=== PATIENT | female | born 2000 | race Two or more races ===

== ENCOUNTER 2021-06-30 12:10 | Emergency (ER) | payer MEDICAID ==
[~2021-06-30] VITALS: Ht 157.5 cm; Wt 57.3 kg
[2021-06-30] MEDS ORDERED: BENZONATATE 100 MG CAPSULE PO ONE (12:45)
[2021-06-30] MEDS ORDERED: ALBUTEROL SULFATE 2.5 MG/0.5 ML NEB SOLUTION NEB ONE (12:45)
[2021-06-30] MEDS ORDERED: IPRATROPIUM BROMIDE 0.5 MG/2.5 ML NEB SOLUTION NEB ONE (12:45)
[2021-06-30 13:30] VITALS: BP 110/71
[2021-06-30] MEDS ORDERED: ALBU8HFA IH (13:46)
[2021-06-30] MEDS ORDERED: BENZ-70 PO (13:46)
[2021-07-17] MEDS ORDERED: PENI500T2 PO (04:45)
== END 2021-06-30 13:58 | disposition home or self-care (01) ==
LOC: EMS 12:10
DX: J98.01 Acute bronchospasm (principal); F17.210 Nicotine dependence, cigarettes, uncomplicated; F15.11 Other stimulant abuse, in remission; Z87.09 Personal history of other diseases of the respiratory system
CPT/HCPCS: 71045; 94640; 99285; J7613

== ENCOUNTER 2021-07-05 11:35 | Inpatient (IN) | payer MEDICAID ==
[~2021-07-05] VITALS: Ht 160 cm; Wt 58.0 kg
[~2021-07-05 11:35] MED LIST: ALBU8HFA IH; BENZ-70 PO
[2021-07-05] MEDS ORDERED: SODIUM CHLORIDE 0.9% 1,000 ML IV ONE ×2 (11:45→13:00)
[2021-07-05] MEDS: ACETAMINOPHEN 500 MG TABLET PO ONE ×2 (11:46→12:50)
[2021-07-05 12:12] LABS: BASOPHILS % (AUTO) 0.9 % (0.0-2.0); EOSINOPHILS % (AUTO) 1.9 % (1.0-6.0); HEMATOCRIT 41.8 % (36-46); HEMOGLOBIN 13.8 g/dL (12.0-16.0); LYMPHOCYTES # (AUTO) 1.1 K/uL (1.0-4.8); LYMPHOCYTES % (AUTO) 5.9 % (22.0-44.0); MEAN CORPUSCULAR HEMOGLOBIN 26.5 pg (26.0-34.0); MEAN CORPUSCULAR HGB CONC 33.1 G/dL (31.0-37.0); MEAN CORPUSCULAR VOLUME 80 fL (80-100); MONOCYTES # (AUTO) 1.1 K/uL (0.1-1.0); NEUTROPHILS # (AUTO) 15.4 K/uL (1.8-7.7); PLATELET COUNT (AUTO) 501 K/uL (150-450); RED BLOOD CELL COUNT(AUTO) 5.22 MIL/uL (4.00-5.20); RED CELL DISTRIBUTION WIDTH 14.3 % (11.5-14.5)
[2021-07-05 12:13] LABS: NEUTROPHILS % (AUTO) 85.3 % (40.0-70.0)
[2021-07-05] MEDS ORDERED: LEVOFLOXACIN 500 MG/D5% WATER 100 ML IV ONE (12:15)
[2021-07-05] MEDS ORDERED: PIPERACILLIN/TAZO 3.375 GM/D5W 50 ML IV ONE (12:15)
[2021-07-05 12:16] LABS: COVID AG,FIA SOURCE NASOPHARYNGEAL
[2021-07-05 12:20] LABS: ANION GAP 7 mmol/L (8-16); CALCIUM, TOTAL 8.9 mg/dL (8.8-10.5); CARBON DIOXIDE 29 mmol/L (22-29); CHLORIDE 105 mmol/L (98-107); CREATININE 0.79 mg/dL (0.60-1.30); GLOMERULAR FILTR. RATE CALC > 60 mL/min (>60); GLUCOSE,RANDOM 100 mg/dL (70-110); POTASSIUM 4.1 mmol/L (3.5-5.1); SODIUM SERUM 141 mmol/L (136-145); UREA NITROGEN, BLOOD 17 mg/dL (7-18)
[2021-07-05 12:25] LABS: PROTHROMBIN TIME 10.3 SEC (9.4-11.6)
[2021-07-05 12:26] LABS: ALANINE AMINOTRANSFERASE 35 U/L (12-78); ALBUMIN 3.5 g/dL (3.4-5.0); ALKALINE PHOSPHATASE 99 U/L (46-116); ASPARTATE AMINOTRANSFERASE 25 U/L (15-37); BILIRUBIN,TOTAL 0.3 mg/dL (0.1-1.0); CREATINE KINASE, TOTAL ONLY 36 U/L (26-192); TOTAL PROTEIN, SERUM 7.7 g/dL (6.4-8.2)
[2021-07-05 12:33] LABS: LACTIC ACID 1.4 mmol/L (0.4-2.0)
[2021-07-05 12:34] LABS: INFLUENZA TYPE A NEGATIVE FOR TYPE A (NEGATIVE); INFLUENZA TYPE B NEGATIVE FOR TYPE B (NEGATIVE)
[2021-07-05] MEDS ORDERED: ONDANSETRON HCL 4 MG/2 ML VIAL IVP PRN (13:15)
[2021-07-05 13:30] LABS: HCG,QUANTITATIVE < 1 mIU/mL (0-6)
[2021-07-05] MEDS ORDERED: VANCOMYCIN HCL 1 GM in DEXTROSE 5%-WATER 250 ML IV ONE (14:00)
[2021-07-05] MEDS ORDERED: VANCOMYCIN HCL 1 GM/D5% WATER 200 ML IV ONE (14:00)
[2021-07-05 16:00] VITALS: BP 108/71
[2021-07-05] MEDS: HEPARIN SODIUM,PORCINE 5,000 UNITS/ML VIAL SQ SCH (16:00)
[2021-07-05] MEDS ORDERED: 0.9% SODIUM CHLORIDE 5 ML NEB SOLUTION NEB ONE (18:53)
[2021-07-05] MEDS: PIPERACILLIN/TAZO 3.375 GM/D5W 50 ML IV SCH (18:57)
[2021-07-05 19:44] VITALS: BP 104/59
[2021-07-05] MEDS: LORazepam 2 MG/ML VIAL IVP PRN (19:45)
[2021-07-05] MEDS: DOCUSATE SODIUM 100 MG CAPSULE PO SCH (20:34)
[2021-07-05] MEDS: ACETAMINOPHEN 325 MG TABLET PO PRN (21:30)
[2021-07-05] MEDS: BENZONATATE 100 MG CAPSULE PO PRN (21:30)
[2021-07-05 23:34] VITALS: BP 98/58
[2021-07-06] VITALS (8 sets, daily range): BP systolic 95–111; BP diastolic 58–73
[2021-07-06] MEDS: VANCOMYCIN HCL 750 MG in DEXTROSE 5%-WATER 250 ML IV SCH ×4 (00:13→23:44)
[2021-07-06] MEDS ORDERED: SODIUM CHLORIDE 0.9% 250 ML IV ONE (00:20)
[2021-07-06] MEDS: PIPERACILLIN/TAZO 3.375 GM/D5W 50 ML IV SCH ×4 (00:22→19:53)
[2021-07-06] MEDS ORDERED: GuaiFENesin/CODEINE [SUGAR FREE] 200-20MG/10 ML SYRUP UDCUP PO PRN (01:45)
[2021-07-06] MEDS: LORazepam 2 MG/ML VIAL IVP PRN ×4 (01:47→23:32)
[2021-07-06] MEDS: ALBUTEROL SULFATE 2.5 MG/0.5 ML NEB SOLUTION NEB PRN (01:53)
[2021-07-06 02:30] LABS: APPEARANCE,URINE CLEAR (CLEAR); BILIRUBIN,URINE NEGATIVE (NEGATIVE); GLUCOSE, URINE (UA) NEGATIVE (NEGATIVE); KETONES,URINE NEGATIVE (NEGATIVE); LEUKOCYTE ESTERASE ,URINE NEGATIVE (NEGATIVE); NITRATE,URINE NEGATIVE (NEGATIVE); OCCULT BLOOD,URINE NEGATIVE (NEGATIVE); PH,URINE 5.5 (5.0-8.0); PROTEIN,URINE NEGATIVE (NEGATIVE); SPECIFIC GRAVITIY, URINE 1.019 (1.003-1.030); UROBILINOGEN,URINE <=1.0 mg/dL (<=1.0)
[2021-07-06 06:30] LABS: BASOPHILS % (AUTO) 0.4 % (0.0-2.0); HEMOGLOBIN 12.6 g/dL (12.0-16.0); LYMPHOCYTES # (AUTO) 1.1 K/uL (1.0-4.8); LYMPHOCYTES % (AUTO) 7.8 % (22.0-44.0); MEAN CORPUSCULAR HEMOGLOBIN 26.1 pg (26.0-34.0); MEAN CORPUSCULAR HGB CONC 32.4 G/dL (31.0-37.0); MEAN CORPUSCULAR VOLUME 81 fL (80-100); MONOCYTES # (AUTO) 1.1 K/uL (0.1-1.0); MONOCYTES % (AUTO) 7.8 % (2.0-9.0); NEUTROPHILS # (AUTO) 11.9 K/uL (1.8-7.7); PLATELET COUNT (AUTO) 433 K/uL (150-450); RED BLOOD CELL COUNT(AUTO) 4.83 MIL/uL (4.00-5.20); RED CELL DISTRIBUTION WIDTH 14.5 % (11.5-14.5)
[2021-07-06 06:45] LABS: ANION GAP 7 mmol/L (8-16); CALCIUM, TOTAL 8.3 mg/dL (8.8-10.5); CARBON DIOXIDE 29 mmol/L (22-29); CHLORIDE 105 mmol/L (98-107); CREATININE 0.66 mg/dL (0.60-1.30); GLOMERULAR FILTR. RATE CALC > 60 mL/min (>60); GLUCOSE,RANDOM 88 mg/dL (70-110); POTASSIUM 3.7 mmol/L (3.5-5.1); SODIUM SERUM 141 mmol/L (136-145); UREA NITROGEN, BLOOD 9 mg/dL (7-18)
[2021-07-06] MEDS: BENZONATATE 100 MG CAPSULE PO PRN (07:56)
[2021-07-06] MEDS: FAMOTIDINE 20 MG TABLET PO SCH (07:56)
[2021-07-06] MEDS: HEPARIN SODIUM,PORCINE 5,000 UNITS/ML VIAL SQ SCH ×4 (08:00→23:44)
[2021-07-06] MEDS: DOCUSATE SODIUM 100 MG CAPSULE PO SCH ×2 (08:07→21:00)
[2021-07-06] MEDS ORDERED: SODIUM CHLORIDE 0.9% 100 ML ONE (09:56)
[2021-07-06] MEDS ORDERED: IOHEXOL 350 MG/ML 100 ML VIAL ONE (09:56)
[2021-07-06 12:42] LABS: AMPHET/METH SCREEN,URINE POSITIVE (NEGATIVE); BARBITURATE SCREEN, URINE NEGATIVE (NEGATIVE); BENZODIAZEPINES SCREEN,URINE NEGATIVE (NEGATIVE); CANNABINOID SCREEN,URINE NEGATIVE (NEGATIVE); COCAINE SCREEN,URINE NEGATIVE (NEGATIVE); METHADONE SCREEN, URINE NEGATIVE (NEGATIVE); OPIATE SCREEN,URINE POSITIVE (NEGATIVE); PHENCYCLIDINE SCREEN,URINE NEGATIVE (NEGATIVE)
[2021-07-06] MEDS: MethylPREDNISolone SOD SUCC 125 MG/2 ML VIAL IVP SCH ×3 (13:53→23:39)
[2021-07-06] MEDS: BUDESONIDE 0.5 MG/2 ML NEB SOLUTION NEB SCH (20:13)
[2021-07-07] MEDS: MELATONIN 3 MG TABLET PO PRN ×2 (01:46→21:53)
[2021-07-07] MEDS: PIPERACILLIN/TAZO 3.375 GM/D5W 50 ML IV SCH ×4 (02:54→20:48)
[2021-07-07 04:31] VITALS: BP 104/54
[2021-07-07] MEDS: MethylPREDNISolone SOD SUCC 125 MG/2 ML VIAL IVP SCH ×3 (05:41→19:26)
[2021-07-07] MEDS: HEPARIN SODIUM,PORCINE 5,000 UNITS/ML VIAL SQ SCH ×2 (08:00→16:00)
[2021-07-07] MEDS: BUDESONIDE 0.5 MG/2 ML NEB SOLUTION NEB SCH ×2 (08:13→21:00)
[2021-07-07] MEDS: ALBUTEROL SULFATE 2.5 MG/0.5 ML NEB SOLUTION NEB PRN (08:13)
[2021-07-07] MEDS: DOCUSATE SODIUM 100 MG CAPSULE PO SCH ×2 (10:06→20:52)
[2021-07-07] MEDS: FAMOTIDINE 20 MG TABLET PO SCH (10:06)
[2021-07-07 10:46] VITALS: BP 105/67
[2021-07-07] MEDS: VANCOMYCIN HCL 750 MG in DEXTROSE 5%-WATER 250 ML IV SCH ×3 (10:48→23:52)
[2021-07-07] MEDS: LORazepam 2 MG/ML VIAL IVP PRN ×2 (11:25→20:52)
[2021-07-07 11:42] LABS: ANION GAP 12 mmol/L (8-16); CALCIUM, TOTAL 8.4 mg/dL (8.8-10.5); CARBON DIOXIDE 25 mmol/L (22-29); CHLORIDE 101 mmol/L (98-107); CREATININE 0.83 mg/dL (0.60-1.30); GLOMERULAR FILTR. RATE CALC > 60 mL/min (>60); GLUCOSE,RANDOM 258 mg/dL (70-110); POTASSIUM 3.7 mmol/L (3.5-5.1); SODIUM SERUM 138 mmol/L (136-145); UREA NITROGEN, BLOOD 14 mg/dL (7-18)
[2021-07-07 11:54] LABS: VANCOMYCIN,RANDOM 13.1 mcg/mL (25.0-50.0)
[2021-07-07] MEDS: BENZONATATE 100 MG CAPSULE PO PRN (12:46)
[2021-07-07 19:46] VITALS: BP 118/61
[2021-07-07 23:32] VITALS: BP 112/58
[2021-07-08] MEDS: MethylPREDNISolone SOD SUCC 125 MG/2 ML VIAL IVP SCH ×2 (01:51→07:25)
[2021-07-08] MEDS: PIPERACILLIN/TAZO 3.375 GM/D5W 50 ML IV SCH ×2 (02:01→07:25)
[2021-07-08] MEDS ORDERED: SODIUM CHLORIDE 0.9% 250 ML IV ONE (02:11)
[2021-07-08] MEDS: ACETAMINOPHEN 325 MG TABLET PO PRN (02:49)
[2021-07-08 04:33] VITALS: BP 114/67
[2021-07-08 07:47] LABS: ANION GAP 6 mmol/L (8-16); CALCIUM, TOTAL 8.7 mg/dL (8.8-10.5); CARBON DIOXIDE 30 mmol/L (22-29); CHLORIDE 105 mmol/L (98-107); CREATININE 0.64 mg/dL (0.60-1.30); GLOMERULAR FILTR. RATE CALC > 60 mL/min (>60); GLUCOSE,RANDOM 137 mg/dL (70-110); POTASSIUM 3.6 mmol/L (3.5-5.1); SODIUM SERUM 141 mmol/L (136-145); UREA NITROGEN, BLOOD 21 mg/dL (7-18)
[2021-07-08 07:56] VITALS: BP 116/69
[2021-07-08] MEDS: HEPARIN SODIUM,PORCINE 5,000 UNITS/ML VIAL SQ SCH ×2 (08:00)
[2021-07-08] MEDS: BUDESONIDE 0.5 MG/2 ML NEB SOLUTION NEB SCH (08:00)
[2021-07-08] MEDS: DOCUSATE SODIUM 100 MG CAPSULE PO SCH (08:49)
[2021-07-08] MEDS: FAMOTIDINE 20 MG TABLET PO SCH (08:49)
[2021-07-08] MEDS: LORazepam 2 MG/ML VIAL IVP PRN (08:53)
[2021-07-08] MEDS: VANCOMYCIN HCL 750 MG in DEXTROSE 5%-WATER 250 ML IV SCH (08:54)
[2021-07-09] MEDS ORDERED: DOXY-354 PO (15:01)
[2021-07-17] MEDS ORDERED: PENI500T2 PO (04:45)
== END 2021-07-08 12:30 | disposition left against medical advice (07) | DRG 139 ==
LOC: EMS 11:37 → 5S 13:52
PROVIDERS: ADMIT Internal Medicine; ATTEND Internal Medicine
PROC: 5A09357 Assistance with Respiratory Ventilation, Less than 24 Consecutive Hours, Continuous Positive Airway Pressure (ICD-10-PCS; principal; 2021-07-05)
DX: J18.1 Lobar pneumonia, unspecified organism (principal); J96.01 Acute respiratory failure with hypoxia; R65.10 Systemic inflammatory response syndrome (SIRS) of non-infectious origin without acute organ dysfunction; Z20.822 Contact with and (suspected) exposure to COVID-19; Z53.29 Procedure and treatment not carried out because of patient's decision for other reasons; F15.10 Other stimulant abuse, uncomplicated; F17.210 Nicotine dependence, cigarettes, uncomplicated; Z91.19 Patient's noncompliance with other medical treatment and regimen; U07.0 Vaping-related disorder
CPT/HCPCS: 71045; 71260; 80048; 80053; 80202; 80307; 81003; 82550; 83605; 84484; 84702; 85025; 85610; 85730; 87040; 87081; 87804; 93005; 94640; 99291; J1644; J1956; J2060; J2405; J2543; J2930; J3370; J7030; J7050; J7060; Q9967; 36415-L1; 36415-TC; J7613

== ENCOUNTER 2021-07-09 14:47 | Inpatient (IN) | payer MEDICAID ==
[~2021-07-09] VITALS: Ht 160 cm; Wt 58.6 kg
[2021-07-09] MEDS ORDERED: DOXY-354 PO (15:01)
[2021-07-09 16:09] LABS: COVID AG,FIA SOURCE NASOPHARYNGEAL
[2021-07-09 16:10] LABS: BASOPHILS % (AUTO) 0.2 % (0.0-2.0); EOSINOPHILS % (AUTO) 0.8 % (1.0-6.0); HEMATOCRIT 37.7 % (36-46); HEMOGLOBIN 12.2 g/dL (12.0-16.0); LYMPHOCYTES # (AUTO) 3.6 K/uL (1.0-4.8); LYMPHOCYTES % (AUTO) 22.3 % (22.0-44.0); MEAN CORPUSCULAR HEMOGLOBIN 25.7 pg (26.0-34.0); MEAN CORPUSCULAR HGB CONC 32.4 G/dL (31.0-37.0); MEAN CORPUSCULAR VOLUME 80 fL (80-100); MONOCYTES # (AUTO) 2.1 K/uL (0.1-1.0); MONOCYTES % (AUTO) 12.7 % (2.0-9.0); NEUTROPHILS # (AUTO) 10.5 K/uL (1.8-7.7); PLATELET COUNT (AUTO) 534 K/uL (150-450); RED BLOOD CELL COUNT(AUTO) 4.74 MIL/uL (4.00-5.20); RED CELL DISTRIBUTION WIDTH 14.5 % (11.5-14.5)
[2021-07-09] MEDS ORDERED: ACETAMINOPHEN 325 MG TABLET PO PRN ×2 (16:15→19:30)
[2021-07-09] MEDS ORDERED: ONDANSETRON HCL 4 MG/2 ML VIAL IVP PRN ×2 (16:15→19:30)
[2021-07-09 16:24] LABS: ANION GAP 6 mmol/L (8-16); CALCIUM, TOTAL 8.5 mg/dL (8.8-10.5); CARBON DIOXIDE 32 mmol/L (22-29); CHLORIDE 104 mmol/L (98-107); CREATININE 0.63 mg/dL (0.60-1.30); GLOMERULAR FILTR. RATE CALC > 60 mL/min (>60); GLUCOSE,RANDOM 78 mg/dL (70-110); POTASSIUM 3.4 mmol/L (3.5-5.1); SODIUM SERUM 142 mmol/L (136-145); UREA NITROGEN, BLOOD 17 mg/dL (7-18)
[2021-07-09 16:30] LABS: ALANINE AMINOTRANSFERASE 47 U/L (12-78); ALBUMIN 3.1 g/dL (3.4-5.0); ALKALINE PHOSPHATASE 74 U/L (46-116); ASPARTATE AMINOTRANSFERASE 25 U/L (15-37); BILIRUBIN,TOTAL 0.3 mg/dL (0.1-1.0); TOTAL PROTEIN, SERUM 6.9 g/dL (6.4-8.2)
[2021-07-09] MEDS ORDERED: *CLINICAL-LEVOFLOXACIN IVPB DOSING CLINICAL ONE (19:30)
[2021-07-09] MEDS ORDERED: ZOLPIDEM TARTRATE 5 MG TABLET PO PRN (19:30)
[2021-07-09] MEDS ORDERED: LEVOFLOXACIN 750 MG/D5% WATER 150 ML IV SCH (20:00)
[2021-07-09] MEDS: DOCUSATE SODIUM 100 MG CAPSULE PO SCH (21:00)
[2021-07-10] MEDS: DOCUSATE SODIUM 100 MG CAPSULE PO SCH ×2 (09:00→19:51)
[2021-07-10] MEDS: FAMOTIDINE 20 MG TABLET PO SCH (09:00)
[2021-07-10] MEDS ORDERED: ACETAMINOPHEN 325 MG TABLET PO PRN (12:15)
[2021-07-10] MEDS: LEVOFLOXACIN 500 MG TABLET PO SCH (15:40)
[2021-07-10 16:18] VITALS: BP 105/72
[2021-07-10 19:30] VITALS: BP 125/69
[2021-07-10] MEDS ORDERED: TraZODone HCL 100 MG TABLET PO SCH (21:00)
[2021-07-11 05:00] VITALS: BP 99/57
[2021-07-11] MEDS: FAMOTIDINE 20 MG TABLET PO SCH (08:42)
[2021-07-11] MEDS: LEVOFLOXACIN 500 MG TABLET PO SCH (08:42)
[2021-07-11] MEDS: DOCUSATE SODIUM 100 MG CAPSULE PO SCH ×2 (08:42→08:44)
[2021-07-11 08:55] VITALS: BP 108/68
[2021-07-17] MEDS ORDERED: PENI500T2 PO (04:45)
== END 2021-07-11 11:10 | disposition home or self-care (01) | DRG 139 ==
LOC: EMS 14:47 → 6S 07-10 04:55
PROVIDERS: ADMIT Internal Medicine; ATTEND Internal Medicine
DX: J18.9 Pneumonia, unspecified organism (principal); R45.851 Suicidal ideations; U07.0 Vaping-related disorder; F43.10 Post-traumatic stress disorder, unspecified; Z91.19 Patient's noncompliance with other medical treatment and regimen; Z20.822 Contact with and (suspected) exposure to COVID-19; F31.9 Bipolar disorder, unspecified; F17.210 Nicotine dependence, cigarettes, uncomplicated; F19.10 Other psychoactive substance abuse, uncomplicated; F99 Mental disorder, not otherwise specified
CPT/HCPCS: 71045; 80053; 85025; 99285; J1956; 36415-L1; 36415-TC

== ENCOUNTER 2022-02-02 05:06 | Emergency (ER) | payer MEDICAID ==
[~2022-02-02] VITALS: Ht 170.2 cm; Wt 65.9 kg
[~2022-02-02 05:06] MED LIST changes: +DIVA-80 PO; +LEVO-72 PO; +PRED-549 PO; +PRED-554 PO; +PRED-729 PO
[2022-02-02] MEDS ORDERED: PROPARACAINE HCL 0.5% 15 ML OPHTHALMIC SOLUTION OU ONE (05:15)
[2022-02-02] MEDS ORDERED: FLUORESCEIN SODIUM 1 MG STRIP ONE (05:57)
[2022-02-02] MEDS ORDERED: FLUORESCEIN SODIUM 1 MG STRIP OU ONE (06:00)
[2022-02-02] MEDS ORDERED: POLY10DR3 OU (06:42)
[2022-02-02 07:20] VITALS: BP 129/73
== END 2022-02-02 07:20 | disposition home or self-care (01) ==
LOC: EMS 05:08
DX: T26.62XA Corrosion of cornea and conjunctival sac, left eye, initial encounter (principal); T26.61XA Corrosion of cornea and conjunctival sac, right eye, initial encounter; F41.9 Anxiety disorder, unspecified; J18.9 Pneumonia, unspecified organism; F17.210 Nicotine dependence, cigarettes, uncomplicated; F15.90 Other stimulant use, unspecified, uncomplicated; Z88.1 Allergy status to other antibiotic agents; Z88.0 Allergy status to penicillin; Y93.89 Activity, other specified; Y92.89 Other specified places as the place of occurrence of the external cause; Y99.8 Other external cause status
CPT/HCPCS: 99173; 99284; J9035; Z7502; Z7610